=== PATIENT | female | born 1980 | race Caucasian/White ===

== ENCOUNTER → 2017-02-18 | Outpatient (CLI) | payer MEDICARE, MEDICAID | END | disposition home or self-care (01) | LOC: PTH.S 12:43 | DX: R53.83 Other fatigue (principal) ==

== ENCOUNTER 2017-03-04 13:04 | Emergency (ER) | payer MEDICARE, MEDICAID ==
--- NOTE | 2017-03-09 16:16 | ER ---
ADMIT: 03/04/2017 RM/LOC: ER [facility] MR#: [id number] [address] [id number] [address]Y [address] [facility] [address] [place] [id number] Emergency Room Report SEX: F AGE: 36 : 1980 DATE: 03/04/2017 ADDENDUM: CHIEF COMPLAINT: Dental pain. HISTORY OF PRESENT ILLNESS: This is a 36-year-old female, who had a couple root canals and a couple teeth extracted this last Monday and . She is a smoker. I think she developed a dry socket. I did do a bupivacaine block and then applied dry socket paste to the teeth. I sent her home with [place] and amoxicillin for pain and for antibiotic just because she does have some minor swelling in that area as well. CLINICAL IMPRESSION: Dry socket. DISPOSITION: Told her to follow up with her dentist as needed next week. ALFREDO Mendez / Jasper Mondragon MD / julio cesar JOB #: [id number] CC: Jasper Mondragon MD, Attending Physician UNKNOWN, Family Physician
== END 2017-03-04 15:18 | disposition home or self-care (01) ==
LOC: ER 13:04
PROC: 3E0T3BZ Introduction of Anesthetic Agent into Peripheral Nerves and Plexi, Percutaneous Approach (ICD-10-PCS; principal; 2017-03-04)
DX: M27.3 Alveolitis of jaws (principal); F17.210 Nicotine dependence, cigarettes, uncomplicated